=== PATIENT | male | born 1930 | race African-American/Black ===

== ENCOUNTER 2017-02-07 07:54 | Emergency (ER) | payer OTHER ==
[~2017-02-07] VITALS: Ht 182.9 cm; Wt 84.0 kg
[2017-02-07] MEDS ORDERED: [UNRECOGNIZED DRUG - CODE] PO (08:27)
[2017-02-07] MEDS ORDERED: [UNRECOGNIZED DRUG - CODE] PO (08:27)
[2017-02-07] MEDS ORDERED: MONT5TAB16 PO (08:27)
[2017-02-07] MEDS ORDERED: AMLO5TAB66 PO (08:27)
[2017-02-07] MEDS ORDERED: OMEP20CA10 PO (08:27)
[2017-02-07] MEDS ORDERED: ALBU2.5V2 NEB (08:27)
[2017-02-07] MEDS ORDERED: TAMS-1 PO (08:27)
[2017-02-07] MEDS ORDERED: ATOR20TA65 PO (08:27)
[2017-02-07] MEDS ORDERED: POTA8TAB4 PO (08:27)
[2017-02-07] MEDS ORDERED: FURO20TA4 PO (08:27)
[2017-02-07] MEDS ORDERED: MOME13HF IH (08:27)
[2017-02-07] MEDS ORDERED: GABA-531 PO (08:27)
[2017-02-07 08:47] VITALS: BP 0/0
[2017-02-07] MEDS ORDERED: EPINEPHrine 1:10,000 [1 MG/10 ML] SYRINGE IVP ONE (16:15)
[2017-02-07] MEDS ORDERED: SODIUM BICARBONATE [ADULT] 8.4% 50 MEQ/50 ML SYRINGE IVP ONE (16:15)
== END 2017-02-07 12:02 | disposition expired ==
LOC: EMS 08:00
DX: I46.9 Cardiac arrest, cause unspecified (principal); I11.9 Hypertensive heart disease without heart failure
CPT/HCPCS: 92950; 99285; J0171; J3490